=== PATIENT | female | born 1995 | race Caucasian/White ===

== ENCOUNTER 2018-07-10 23:23 | Emergency (ER) | payer OTHER ==
[~2018-07-10] VITALS: Ht 170.2 cm; Wt 122.9 kg
[2018-07-10 23:42] VITALS: BP 138/84; Ht 170.2 cm; Wt 122.9 kg
== END 2018-07-11 00:58 | disposition home or self-care (01) ==
LOC: ED 23:23
DX: S93.602A Unspecified sprain of left foot, initial encounter (principal); Z88.0 Allergy status to penicillin; W01.0XXA Fall on same level from slipping, tripping and stumbling without subsequent striking against object, initial encounter; Y93.89 Activity, other specified; Y92.89 Other specified places as the place of occurrence of the external cause; Y99.8 Other external cause status

== ENCOUNTER 2018-10-24 21:48 | Emergency (ER) | payer OTHER ==
[~2018-10-24] VITALS: Ht 170.2 cm; Wt 118.1 kg
[2018-10-24 21:57] VITALS: BP 152/99; Ht 170.2 cm; Wt 118.1 kg
== END 2018-10-24 22:27 | disposition home or self-care (01) ==
LOC: ED 21:48
DX: E03.9 Hypothyroidism, unspecified (principal); N63.0 Unspecified lump in unspecified breast; Z00.00 Encounter for general adult medical examination without abnormal findings; Z88.0 Allergy status to penicillin